=== PATIENT | female | born 1990 | race Caucasian/White ===

== ENCOUNTER 2021-04-17 21:42 | Emergency (ER) | payer OTHER ==
--- NOTE | 2021-04-17 23:06 | ED Physician Documentation ---
History of Present Illness - Stated complaint Stated Complaint: POSS SEIZURE/VOMIT - Chief complaint Chief Complaint: Neuro - History obtained from History obtained from: Patient, Family (spouse) - Additonal information Additional information: 30yF previously healthy, p/w brief unresponsive episode this evening, with full return to baseline. Patient had a glass of red wine and then smoked a small am ount of a marijuana joint, became lightheaded several times and then had a brief episode of unresponsiveness and "was staring off" while sitting, followed by one episode of vomiting witnessed by . vomitus appeared to be composed of red wine. she was AOX3 within minutes of return to consciousness and denies incontinence or tongue biting. does endorse some persistent weakness here in the ED and states she ate lightly today and was recently on a "cleanse". +FH diabetes. no personal history of diabetes or other medical condition. Review of Systems Ten Systems: 10 systems reviewed and negative Constitutional: denies: Fever, Chills Cardiac: denies: Chest pain / pressure, Palpitations Respiratory: denies: Dyspnea GI: reports: Nausea, Vomiting. denies: Abdominal Pain, Diarrhea : denies: Dysuria, Frequency Musculoskeletal: denies: Back pain Neurologic: reports: Generalized weakness, Altered mental status PD PAST MEDICAL HISTORY - Present Medications Home Medications: Ambulatory Orders Medication Instructions Recorded Confirmed No Known Home Medications 04/17/21 04/17/21 - Allergies Allergies/Adverse Reactions: Allergies Allergy/AdvReac Type Severity Reaction Status Date / Time No Known Drug Allergies Allergy Verified 04/17/21 22:03 PD ED PE NORMAL - Vitals Vital signs reviewed: Yes - General General: Alert and oriented X 3, No acute distress, Well developed/nourished - HEENT HEENT: Atraumatic, PERRL, EOMI - Neck Neck: Supple, no meningeal sign - Cardiac Cardiac: RRR - Respiratory Respiratory: No respiratory distress, Clear bilaterally - Abdomen Abdomen: Non tender, Non distended - Derm Derm: Normal color, Warm and dry - Extremities Extremities: No deformity, No edema - Neuro Neuro: Alert and oriented X 3, 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 normal coordination and strength) Eye Opening: Spontaneous Motor: Obeys Commands Verbal: Oriented GCS Score: 15 - Psych Psych: Normal mood, Normal affect Results - Vitals Vitals: Vital Signs - 24 hr 04/17/21 04/17/21 04/17/21 22:00 22:16 22:27 Temperature 36.5 C 36.5 C Heart Rate 76 76 Heart Rate [ 76 Sitting] Heart Rate [ 78 Standing] Heart Rate [ 76 Supine] Respiratory 15 15 Rate Blood Pressure 105/66 104/66 Blood Pressure 111/71 [Sitting] Blood Pressure 109/73 [Standing] Blood Pressure 104/74 [Supine] O2 Saturation 100 100 04/18/21 04/18/21 00:02 00:46 Temperature 36.5 C Heart Rate 72 71 Heart Rate [ Sitting] Heart Rate [ Standing] Heart Rate [ Supine] Respiratory 15 16 Rate Blood Pressure 101/66 109/65 Blood Pressure [Sitting] Blood Pressure [Standing] Blood Pressure [Supine] O2 Saturation 99 99 Oxygen O2 Source Room air - EKG (time done) 2249 Rate: Rate (enter#) (64) Rhythm: NSR [place]: Normal Intervals: Normal MO QRS: Normal Ischemia: Normal ST segments - Labs Labs: Laboratory Tests 04/17/21 04/17/21 04/17/21 22:39 23:28 23:28 WBC 8.5 RBC 4.65 Hgb 13.9 Hct 42.8 MCV 92.0 MCH 29.9 MCHC 32.5 RDW 13.2 Plt Count 291 MPV 10.4 Neut # (Auto) 6.4 Lymph # (Auto) 1.5 Ferry # (Auto) 0.5 Eos # (Auto) 0.0 Baso # (Auto) 0.0 Absolute Nucleated RBC 0.00 Nucleated RBC % 0.0 Sodium 133 L Potassium 4.0 Chloride 100 L Carbon Dioxide 23 Anion Gap 10.0 BUN 16 Creatinine 0.7 Estimated GFR (MDRD) 97 Glucose 101 H POC Whole Bld Glucose 74 Calcium 9.3 Magnesium 2.2 Total Bilirubin 0.5 AST 14 ALT 14 Alkaline Phosphatase 52 Total Protein 8.2 Albumin 4.6 Globulin 3.6 Albumin/Globulin Ratio 1.3 Lipase 35 Urine HCG, Qual 04/17/21 23:30 WBC RBC Hgb Hct MCV MCH MCHC RDW Plt Count MPV Neut # (Auto) Lymph # (Auto) Ferry # (Auto) Eos # (Auto) Baso # (Auto) Absolute Nucleated RBC Nucleated RBC % Sodium Potassium Chloride Carbon Dioxide Anion Gap BUN Creatinine Estimated GFR (MDRD) Glucose POC Whole Bld Glucose Calcium Magnesium Total Bilirubin AST ALT Alkaline Phosphatase Total Protein Albumin Globulin Albumin/Globulin Ratio Lipase Urine HCG, Qual NEGATIVE PD MEDICAL DECISION MAKING - ED course ED course: 30yF p/w brief unresponsive episode this evening, with full return to baseline. Patient now ambulatory without difficulty, tolerating water and crackers, with normal orthostatics, negative hcg, normal ekg, and unremarkable labwork with exception of mild hyponatremia. Advised patient to eat healthy diet, stay well hydrated, avoid MJ/etoh and f/u with a PCP. List of providers was given. strict return precautions discussed. Departure - Departure Disposition: Home, Self Care Clinical Impression: Spell of altered consciousness, Dizziness Condition: Stable Instructions: ED Dizziness [facility] Follow-Up: Marisol Ozuna PA-C [Provider Admit Priv/Credential] - Alvaro Melissa DO [Provider Admit Priv/Credential] - Mike Gill MD [Physician No Access] - Comments: You were seen in the emergency department for evaluation of dizziness and an unresponsive episode happening tonight. Multiple tests were done in the emergency department including a fingerstick glucose test that showed it was on the lower limit of normal (74). When bloodwork was taken your sugar was 101, which is in a good range. The rest of your labwork looked good, including tests for anemia, organ function, and electrolytes. It did show possible mild dehydration. Please follow up with a primary provider for follow up testing. Avoid stimulants like alcohol, marijuana, and try to limit caffeine intake while eating a healthy diet. Return to the ED if you have any new or worsening symptoms or other concerns.
[2021-04-17 23:41] LABS: BASOPHILS % (AUTO) 0.1 %; EOSINOPHILS % (AUTO) 0.5 %; HCT - HEMATOCRIT 42.8 % (37.0-47.0); HGB - HEMOGLOBIN 13.9 g/dL (12.0-16.0); LYMPHOCYTES # (AUTO) 1.5 10^3/uL (1.5-3.5); LYMPHOCYTES % (AUTO) 18.1 %; MEAN CORPUSCULAR HEMOGLOBIN 29.9 pg (27.0-31.0); MEAN CORPUSCULAR HGB CONC 32.5 g/dL (32.0-36.0); MEAN PLATELET VOLUME 10.4 fL (7.9-10.8); MONOCYTES # (AUTO) 0.5 10^3/uL (0.0-1.0); MONOCYTES % (AUTO) 5.8 %; NEUTROPHILS # (AUTO) 6.4 10^3/uL (1.5-6.6); NEUTROPHILS % (AUTO) 75.3 %; PLT - PLATELET COUNT 291 10^3/uL (130-450); RED BLOOD COUNT 4.65 10^6/uL (4.20-5.40); RED CELL DISTRIBUTION WIDTH 13.2 % (12.0-15.0); WHITE BLOOD COUNT 8.5 x10^3/uL (4.8-10.8)
[2021-04-17 23:44] LABS: HCG UR QUAL NEGATIVE
[2021-04-17 23:56] LABS: ALBUMIN 4.6 g/dL (3.2-5.5); ALBUMIN/GLOBULIN RATIO 1.3 (1.0-2.2); BILIRUBIN,TOTAL 0.5 mg/dL (0.2-1.0); CALCIUM 9.3 mg/dL (8.5-10.3); CREATININE 0.7 mg/dL (0.4-1.0); MAGNESIUM 2.2 mg/dL (1.7-2.8); TOTAL PROTEIN 8.2 g/dL (6.7-8.2)
[2021-04-18 00:47] VITALS: BP 109/65
== END 2021-04-18 00:58 | disposition home or self-care (01) ==
LOC: ED 21:42
DX: R41.82 Altered mental status, unspecified (principal); R42 Dizziness and giddiness
CPT/HCPCS: 36415; 80053; 81025; 83690; 83735; 85025; 93005; 99282; 99284

== ENCOUNTER 2021-09-24 08:00 | Outpatient (CLI) | payer BC | END 2021-09-24 23:59 | disposition home or self-care (01) | LOC: LAB.WC 08:00 | PROVIDERS: ATTEND Nurse Practitioner | DX: N90.89 Other specified noninflammatory disorders of vulva and perineum (principal) | CPT/HCPCS: 81599; 87252 ==

== ENCOUNTER 2021-09-24 15:05 | Outpatient (CLI) | payer BC ==
[2021-09-25 08:09] LABS: HSV 1 IGG TYPE SPEC 7.07 index (0.00-0.90); HSV 2 IGG TYPE SPEC <0.91 index (0.00-0.90)
[2021-09-25 22:07] LABS: HSV IGM I/II COMBINATION <0.91 Ratio (0.00-0.90)
== END 2021-09-24 15:06 | disposition home or self-care (01) ==
LOC: LAB 15:05
PROVIDERS: ATTEND Nurse Practitioner
DX: N90.89 Other specified noninflammatory disorders of vulva and perineum (principal)
CPT/HCPCS: 36415; 81599; 86695; 86696; 87252

== ENCOUNTER 2021-11-14 16:05 | Outpatient (CLI) | payer BC ==
[2021-11-15 23:10] LABS: BACTERIAL VAGINOSIS DNA NEGATIVE (NEGATIVE); CANDIDA GLABRATA DNA NEGATIVE (NEGATIVE); CANDIDA GROUP DNA POSITIVE (NEGATIVE); CANDIDA KRUSEI DNA NEGATIVE (NEGATIVE); TRICHOMONAS VAGINALIS DNA NEGATIVE (NEGATIVE)
== END 2021-11-14 23:59 | disposition home or self-care (01) ==
LOC: LAB.R 16:05
PROVIDERS: ATTEND Nurse Practitioner
DX: N90.89 Other specified noninflammatory disorders of vulva and perineum (principal)
CPT/HCPCS: 81514

== ENCOUNTER 2021-12-06 08:00 | Outpatient (CLI) | payer BC ==
[2021-12-06 16:53] LABS: BILIRUBIN,URINE NEGATIVE (NEGATIVE); GLUCOSE, URINE (UA) NEGATIVE (NEGATIVE); KETONES,URINE (UA) NEGATIVE (NEGATIVE); LEUKOCYTE ESTERASE, URINE SMALL (NEGATIVE); NITRITE,URINE NEGATIVE (NEGATIVE); OCCULT BLOOD,URINE MODERATE (NEGATIVE); PROTEIN,URINE NEGATIVE (NEGATIVE); UROBILINOGEN,URINE 0.2 (NORMAL) E.U./dL (NORMAL)
[2021-12-06 17:04] LABS: BACTERIA,URINE Few /HPF (None Seen); CLARITY,URINE HAZY (CLEAR); SQUAMOUS EPITHELIAL CELL,UR FEW Squamous (<= Few)
== END 2021-12-06 23:59 | disposition home or self-care (01) ==
LOC: LAB 08:00
PROVIDERS: ATTEND Nurse Practitioner
DX: R30.0 Dysuria (principal)
CPT/HCPCS: 81001; 87077; 87086

== ENCOUNTER 2022-11-28 08:00 | Outpatient (CLI) | payer BC ==
[2022-11-28 19:37] LABS: BACTERIAL VAGINOSIS DNA NEGATIVE (NEGATIVE); CANDIDA GLABRATA DNA NEGATIVE (NEGATIVE); CANDIDA GROUP DNA POSITIVE (NEGATIVE); CANDIDA KRUSEI DNA NEGATIVE (NEGATIVE); TRICHOMONAS VAGINALIS DNA NEGATIVE (NEGATIVE)
== END 2022-11-28 23:59 | disposition home or self-care (01) ==
LOC: LAB.WC 08:00
PROVIDERS: ATTEND Nurse Practitioner
DX: N89.8 Other specified noninflammatory disorders of vagina (principal)
CPT/HCPCS: 81514; 81599; 87109; 87255

== ENCOUNTER 2023-04-20 16:33 | Outpatient (CLI) | payer BC ==
[2023-04-20 21:39] LABS: ESTIMATED AVERAGE GLUCOSE 114 mg/dL (70-100); HEMOGLOBIN A1c% 5.6 % (4.27-6.07)
[2023-04-20 23:07] LABS: BACTERIAL VAGINOSIS DNA NEGATIVE (NEGATIVE); CANDIDA GLABRATA DNA NEGATIVE (NEGATIVE); CANDIDA GROUP DNA NEGATIVE (NEGATIVE); CANDIDA KRUSEI DNA NEGATIVE (NEGATIVE); TRICHOMONAS VAGINALIS DNA NEGATIVE (NEGATIVE)
== END 2023-04-20 16:34 | disposition home or self-care (01) ==
LOC: LAB 16:33
PROVIDERS: ATTEND Nurse Practitioner
DX: N89.8 Other specified noninflammatory disorders of vagina (principal); B37.9 Candidiasis, unspecified
CPT/HCPCS: 36415; 81514; 83036; 87252

== ENCOUNTER 2023-07-24 00:40 | Emergency (ER) | payer BC ==
[2023-07-24] MEDS: oxyCODONE/ACET 5/325 Prepack 4 PO STA (01:52)
[2023-07-24] MEDS: AMOX/CLAV 875 MG/125 MG TABLET PO STA (01:52)
--- NOTE | 2023-07-24 02:00 | ED Physician Documentation ---
PD HPI HEENT - Stated complaint Stated Complaint: TOOTH PX/SHAKING - Chief complaint Chief Complaint: Heent - History obtained from History obtained from: Patient - Additional information Additional information: Patient is a 33-year-old female presenting for evaluation of left upper dental pain which has been ongoing for for 5 days. She has been using clove oil, peppermint, cannabis to help with the pain as well as ibuprofen. She did get a large tattoo on her left thigh today which is not currently bothering her but this evening started feeling some Shakiness became concerned. No reported feve rs. No cough or congestion. No vomiting or diarrhea. Review of Systems Throat: reports: Dental pain / toothache GI: denies: Vomiting, Diarrhea Skin: denies: Rash PD PAST MEDICAL HISTORY - Past Medical History Past Medical History: No - Past Surgical History Past Surgical History: No - Present Medications Home Medications: Ambulatory Orders Medication Instructions Recorded Confirmed Amox/Clav 875/125 [Augmentin] 1 each PO Q12H #14 tablet 07/24/23 Oxycodone HCl/Acetaminophen 1 each PO Q6H PRN #8 tablet 07/24/23 [Percocet 5-325 mg Tablet] - Allergies Allergies/Adverse Reactions: Allergies Allergy/AdvReac Type Severity Reaction Status Date / Time No Known Drug Allergies Allergy Verified 07/24/23 01:01 - Social History Does the pt smoke?: No Smoking Status: Never smoker Does the pt drink ETOH?: No Does the pt have substance abuse?: No - Immunizations Immunizations are current?: Yes - POLST Patient has POLST: No PD ED PE NORMAL - General General: Alert and oriented X 3, No acute distress, Well developed/nourished - HEENT HEENT: Atraumatic, Moist mucous membranes, Pharynx benign, Other (Tenderness to Left upper molar; No swelling or signs of abscess or deep space infection, no trismus) - Neck Neck: Supple, no meningeal sign - Cardiac Cardiac: RRR, Strong equal pulses - Respiratory Respiratory: No respiratory distress, Clear bilaterally - Abdomen Abdomen: Soft, Non tender - Derm Derm: Other (Tattoo to left thigh that was placed today with no signs of redness or Abnormal drainage) - Extremities Extremities: No deformity - Neuro Neuro: Alert and oriented X 3, No motor deficit, Normal speech Results - Vitals Vitals: Vital Signs - 24 hr 07/24/23 07/24/23 00:58 02:01 Temperature 36.9 C Heart Rate 107 H 88 Respiratory 18 18 Rate Blood Pressure 127/80 127/78 O2 Saturation 100 98 Oxygen O2 Source Room air - Labs Labs: Laboratory Tests 07/24/23 02:00 Nasal Adenovirus (PCR) NOT DETECTED Nasal B. parapertussis DNA (PCR) NOT DETECTED Nasal Coronavir 229E PCR NOT DETECTED Nasal Coronavir HKU1 PCR NOT DETECTED Nasal Coronavir NL63 PCR NOT DETECTED Nasal Coronavir OC43 PCR NOT DETECTED Nasal Enterovir/Rhinovir PCR NOT DETECTED Nasal Influenza B PCR NOT DETECTED Nasal Influenza A PCR NOT DETECTED Nasal Parainfluen 1 PCR NOT DETECTED Nasal Parainfluen 2 PCR NOT DETECTED Nasal Parainfluen 3 PCR NOT DETECTED Nasal Parainfluen 4 PCR NOT DETECTED Nasal RSV (PCR) NOT DETECTED Nasal B.pertussis DNA PCR NOT DETECTED Nasal C.pneumoniae (PCR) NOT DETECTED Darryl Human Metapneumo PCR NOT DETECTED Nasal M.pneumoniae (PCR) NOT DETECTED Nasal SARS-CoV-2 (PCR) NOT DETECTED PD Medical Decision Making - ED course ED course: Patient is a 33-year-old female presenting for evaluation of dental pain. No signs of abscess or deep space infection. Vital signs are stable. Will start patient on Augmentin for concerns of dental infection and patient also given a small amount of oxycodone for pain control. Patient also requested respiratory swab as she was feeling some shakiness and chills. She is otherwise well- appearing, understands importance of close follow-up including with a dentist and advised on concerning symptoms to return for. Departure - Departure Disposition: 01 Home, Self Care Clinical Impression: Pain, dental Condition: Stable Instructions: ED Tooth Pain Prescriptions: Amox/Clav 875/125 [Augmentin] 1 each PO Q12H #14 tablet Oxycodone HCl/Acetaminophen [Percocet 5-325 mg Tablet] 1 each PO Q6H PRN #8 tablet PRN Reason: pain Comments: It is very important that you follow-up with a dentist. When it comes to dental problems like yours, the emergency department can only offer a short-term solution to your long-term problem. A couple of low cost options for dental care include: [facility] in [place], calls [phone] for an appointment Or [facility] in [place], call [phone] for an appointment. Your prescriptions were sent to [email or web address] in [place]. I am prescribing a short course of narcotic pain medication for you. These are potentially dangerous and addictive medications that should be used carefully. These medications may constipate you. Take an [id number] stool softener (docusate) twice daily with plenty of water while taking these medications. If you go 24 hours without a bowel movement, take [id number] miralax, per package instructions. Do not drink or drive while taking these medications. If you received narcotic or sedating medications while in the emergency department, do not drive for 24 hours. Store this medication in a safe, secure place and out of reach of children. It is a violation of federal law to give or sell this medication to another person or to use in a manner other than prescribed. The ED will not refill narcotic prescriptions, including prescriptions lost or stolen. To dispose of unwanted medications: 1. [facility] at [address] in [place] has a medication drop box. They accept prescription medications (in pill form) Thursday through Thursday 9:00 a.m. to 5:00 p.m. 2. [facility] accepts prescription medications (in pill form only) for disposal year round. Call for more information. 3. Contact the [facility] for the next [facility] sponsored prescription drug collection event. , x2287, or x1827; Note that many narcotic pain relievers also contain Tylenol/acetaminophen. Please ensure that your total dose of acetaminophen from all sources does not exceed 3 g (3000 mg) per day. Your respiratory panel is pending. This will check for COVID, influenza, RSV and a number of other common cold viruses. We will notify you if it is positive for COVID. Otherwise you can check the patient portal for your results. You should quarantine from others until you know your COVID result. Please continue with acetaminophen or ibuprofen as needed for fevers and body aches, plenty of fluids/hydration and rest. Return to the ER with any worsening symptoms such as difficulty breathing or vomiting. Forms: PCP List Discharge Date/Time: 07/24/23 02:07
[2023-07-24 02:03] VITALS: BP 127/78; O2SAT 98
[2023-07-24 02:57] LABS: B. PARAPERTUSSIS- RESP PCR PAN NOT DETECTED; B. PERTUSSIS- RESP PCR PANEL NOT DETECTED; C. PNEUMONIAE- RESP PCR PANEL NOT DETECTED; CORONAVIRUS 229E-RESP PCR NOT DETECTED; CORONAVIRUS HKU1-RESP PCR NOT DETECTED; CORONAVIRUS NL63-RESP PCR NOT DETECTED; CORONAVIRUS OC43-RESP PCR NOT DETECTED; HUMAN METAPNEUMOVIRUS NOT DETECTED; INFLUENZA A- RESP PCR PANEL NOT DETECTED; INFLUENZA B - RESP PCR PANEL NOT DETECTED; M. PNEUMONIAE- RESP PCR PANEL NOT DETECTED; PARAINFLUENZA VIRUS 1 NOT DETECTED; PARAINFLUENZA VIRUS 2 NOT DETECTED; PARAINFLUENZA VIRUS 3 NOT DETECTED; PARAINFLUENZA VIRUS 4 NOT DETECTED; RHINOVIRUS/ENTEROVIRUS NOT DETECTED; RSV- RESP PCR PANEL NOT DETECTED; SARS-CoV-2 -RESP PCR PANEL NOT DETECTED
== END 2023-07-24 02:07 | disposition home or self-care (01) ==
LOC: ED 00:40
DX: K08.89 Other specified disorders of teeth and supporting structures (principal)
CPT/HCPCS: 87633; 99283; A9270